=== PATIENT | male | born 1945 | race Caucasian/White ===

== ENCOUNTER → 2017-10-04 | Outpatient (CLI) | payer MEDICARE, MEDICAID ==
[~2017-10-04] MED LIST: HYDRALAZINE 20MG/ML VIAL ONE
== END | disposition home or self-care (01) ==
LOC: NM 07:46
PROVIDERS: ATTEND Internal Medicine Cardiovascular Disease
DX: Z01.818 Encounter for other preprocedural examination (principal); I20.9 Angina pectoris, unspecified; R07.9 Chest pain, unspecified; Z95.1 Presence of aortocoronary bypass graft
CPT/HCPCS: 78451; A9500; J0360

== ENCOUNTER → 2018-08-13 | Outpatient (CLI) | payer MEDICARE, MEDICAID ==
[~2018-08-13] MED LIST changes: +ASPI-1159 PO; +ATOR40TA70 PO; +DIATR MEGLU/DIATRIZOATE SOLN 120ML ONE; -HYDRALAZINE 20MG/ML VIAL ONE; +LOSA50TA20 PO; +METO-539 PO
== END | disposition home or self-care (01) ==
LOC: RAD 08:42
PROVIDERS: ATTEND Surgery
DX: K57.92 Diverticulitis of intestine, part unspecified, without perforation or abscess without bleeding (principal)
CPT/HCPCS: 74270; Q9963

== ENCOUNTER 2018-09-10 05:31 | Inpatient (IN) | payer MEDICARE, MEDICAID ==
[~2018-09-10] VITALS: Ht 177.8 cm; Wt 81.6 kg
[~2018-09-10 05:31] MED LIST changes: -DIATR MEGLU/DIATRIZOATE SOLN 120ML ONE
[2018-09-10] MEDS ORDERED: LACTATED RINGERS 1,000 ML IV SCH (06:40)
[2018-09-10] MEDS ORDERED: BUPIVACAINE HCL 0.5% 290 ML in ON-Q PM015 DRUG DELIV DEVICE 1 EA IR STA (08:31)
[2018-09-10] MEDS ORDERED: BUPIVACAINE HCL/PF 0.5% (5MG/ML) 10ML ONE (08:36)
[2018-09-10] MEDS: FENTANYL CITRATE/PF 50MCG/ML 2ML VIAL IV PRN ×4 (09:49→10:19)
[2018-09-10] MEDS ORDERED: FENTANYL CITRATE/PF 50MCG/ML 2ML VIAL ONE (09:54)
[2018-09-10] MEDS ORDERED: ONDANSETRON HCL 4MG/2ML INJ IV PRN (10:00)
[2018-09-10] MEDS: MORPHINE SULFATE 4 MG/ML CPJ (NOT FOR IM USE) IV PRN ×2 (10:26→10:40)
[2018-09-10 12:00] VITALS: BP 154/85
[2018-09-10 12:30] VITALS: BP 154/85
[2018-09-10] MEDS: DEXT 5%/0.45% NACL KCL 20MEQ/L 1,000 ML IV SCH (15:50)
[2018-09-10 16:00] VITALS: BP 146/88
[2018-09-10] MEDS: CEFAZOLIN 1000MG PREMIX 50 ML IV SCH (17:18)
[2018-09-10] MEDS: METRONIDAZOLE 500 MG PREMIX 100 ML IV SCH (18:13)
[2018-09-10 20:00] VITALS: BP 124/62
[2018-09-10] MEDS: FAMOTIDINE 20MG/2ML VIAL IV SCH (21:35)
[2018-09-11] VITALS: BP 157/87
[2018-09-11] MEDS: CEFAZOLIN 1000MG PREMIX 50 ML IV SCH ×2 (01:44→07:18)
[2018-09-11] MEDS: METRONIDAZOLE 500 MG PREMIX 100 ML IV SCH ×2 (01:44→08:13)
[2018-09-11] MEDS: DEXT 5%/0.45% NACL KCL 20MEQ/L 1,000 ML IV SCH ×3 (01:44→20:43)
[2018-09-11 04:00] VITALS: BP 145/76
[2018-09-11 07:34] LABS: BASOPHILS % 0.2 % (0.0-2.0); EOSINOPHILS % 0.2 % (0.0-5.0); HEMATOCRIT. 37.4 % (42.0-52.0); MEAN CORPUSCULAR HEMOGLOBIN 32.5 pg (28.0-32.0); MEAN CORPUSCULAR VOLUME 93.6 fL (80.0-94.0); MEAN PLATELET VOLUME 6.8 fl (7.4-10.4); MONOCYTES % 8.5 % (2.0-8.0); NEUTROPHILS % 81.1 % (40.0-76.0); PLATELET 148 x1000/uL (130-400); RED BLOOD CELL COUNT 3.99 mill/uL (4.7-6.1)
[2018-09-11] MEDS: FAMOTIDINE 20MG/2ML VIAL IV SCH ×2 (08:14→20:35)
[2018-09-11 08:31] LABS: CHLORIDE 105 mEq/L (98-107)
[2018-09-11] MEDS: HYDROMORPHONE HCL/PF 2MG/ML CPJ IV PRN ×3 (09:22→20:37)
[2018-09-11] MEDS: METOPROLOL TARTRATE 25MG TABLET PO SCH ×2 (10:49→21:00)
[2018-09-11 12:20] VITALS: BP 121/76
[2018-09-11 16:00] VITALS: BP 153/77
[2018-09-11 17:00] VITALS: BP 133/81
[2018-09-11 20:00] VITALS: BP 114/59
[2018-09-12] VITALS: BP 135/69
[2018-09-12 04:00] VITALS: BP 124/70
[2018-09-12] MEDS: HYDROMORPHONE HCL/PF 2MG/ML CPJ IV PRN ×2 (05:43→11:36)
[2018-09-12 06:59] LABS: BASOPHILS % 0.5 % (0.0-2.0); EOSINOPHILS % 1.8 % (0.0-5.0); HEMATOCRIT. 36.4 % (42.0-52.0); HEMOGLOBIN. 12.5 g/dL (14.0-18.0); LYMPHOCYTES % 9.9 % (20.0-50.0); MEAN CORPUSCULAR HEMOGLOBIN 32.4 pg (28.0-32.0); MEAN CORPUSCULAR VOLUME 94.6 fL (80.0-94.0); MEAN PLATELET VOLUME 6.7 fl (7.4-10.4); NEUTROPHILS % 79.8 % (40.0-76.0); PLATELET 133 x1000/uL (130-400); RED BLOOD CELL COUNT 3.85 mill/uL (4.7-6.1); RED CELL DISTRIBUTION WIDTH 16.4 % (11.6-14.6)
[2018-09-12 07:03] LABS: CHLORIDE 106 mEq/L (98-107)
[2018-09-12 08:00] VITALS: BP 130/79
[2018-09-12] MEDS: DEXT 5%/0.45% NACL KCL 20MEQ/L 1,000 ML IV SCH ×3 (08:10→18:41)
[2018-09-12] MEDS: FAMOTIDINE 20MG/2ML VIAL IV SCH ×2 (09:19→21:39)
[2018-09-12] MEDS: METOPROLOL TARTRATE 25MG TABLET PO SCH ×2 (09:19→21:42)
[2018-09-12 12:00] VITALS: BP 153/79
[2018-09-12 16:00] VITALS: BP 130/79
[2018-09-12 20:00] VITALS: BP 146/79
[2018-09-13] VITALS: BP 124/62
[2018-09-13 04:00] VITALS: BP 176/71
[2018-09-13] MEDS: HYDROMORPHONE HCL/PF 2MG/ML CPJ IV PRN ×4 (04:48→23:28)
[2018-09-13] MEDS: DEXT 5%/0.45% NACL KCL 20MEQ/L 1,000 ML IV SCH ×2 (06:19→14:21)
[2018-09-13 07:33] LABS: BASOPHILS % 0.5 % (0.0-2.0); EOSINOPHILS % 4.1 % (0.0-5.0); HEMOGLOBIN. 12.5 g/dL (14.0-18.0); LYMPHOCYTES % 14.8 % (20.0-50.0); MEAN CORPUSCULAR HEMOGLOBIN 31.9 pg (28.0-32.0); MEAN CORPUSCULAR VOLUME 94.6 fL (80.0-94.0); MEAN PLATELET VOLUME 6.8 fl (7.4-10.4); MONOCYTES % 7.9 % (2.0-8.0); NEUTROPHILS % 72.7 % (40.0-76.0); PLATELET 142 x1000/uL (130-400); RED BLOOD CELL COUNT 3.91 mill/uL (4.7-6.1); RED CELL DISTRIBUTION WIDTH 15.8 % (11.6-14.6)
[2018-09-13 08:00] VITALS: BP 149/79
[2018-09-13 08:12] LABS: CHLORIDE 103 mEq/L (98-107)
[2018-09-13] MEDS: METOPROLOL TARTRATE 25MG TABLET PO SCH (09:32)
[2018-09-13] MEDS: FAMOTIDINE 20MG/2ML VIAL IV SCH ×2 (09:32→22:21)
[2018-09-13 12:00] VITALS: BP 156/83
[2018-09-13 16:00] VITALS: BP 125/79
[2018-09-13] MEDS: METOPROLOL TARTRATE 50MG TABLET PO SCH (16:00)
[2018-09-13 20:00] VITALS: BP 155/76
[2018-09-14] VITALS: BP 178/82
[2018-09-14 04:00] VITALS: BP 171/86
[2018-09-14] MEDS: DEXT 5%/0.45% NACL KCL 20MEQ/L 1,000 ML IV SCH ×3 (04:29→23:23)
[2018-09-14] MEDS: METOPROLOL TARTRATE 50MG TABLET PO SCH ×2 (04:31→16:41)
[2018-09-14] MEDS: HYDROMORPHONE HCL/PF 2MG/ML CPJ IV PRN ×3 (06:15→21:03)
[2018-09-14 08:00] VITALS: BP 153/78
[2018-09-14] MEDS: FAMOTIDINE 20MG/2ML VIAL IV SCH ×2 (08:54→21:01)
[2018-09-14 12:00] VITALS: BP 178/90
[2018-09-14] MEDS: AMLODIPINE 5MG TABLET PO SCH ×2 (14:49→21:01)
[2018-09-14 16:00] VITALS: BP 176/99
[2018-09-14 20:00] VITALS: BP 161/95
[2018-09-14] MEDS: ONDANSETRON HCL 4MG/2ML INJ IV PRN (21:03)
[2018-09-15] VITALS: BP 167/97
[2018-09-15] MEDS: METOPROLOL TARTRATE 50MG TABLET PO SCH ×2 (05:09→17:44)
[2018-09-15] MEDS: DEXT 5%/0.45% NACL KCL 20MEQ/L 1,000 ML IV SCH ×2 (06:00→16:00)
[2018-09-15 07:13] LABS: HEMATOCRIT 38.2 % (42.0-52.0); HEMOGLOBIN 13.2 g/dL (14.0-18.0); MEAN CORPUSCULAR HEMOGLOBIN 32.3 pg (28.0-32.0); MEAN CORPUSCULAR VOLUME 93.1 fL (80.0-94.0); PLATELET 180 x1000/uL (130-400); RED CELL DISTRIBUTION WIDTH 15.3 % (11.6-14.6)
[2018-09-15 08:00] VITALS: BP 174/74
[2018-09-15] MEDS: AMLODIPINE 5MG TABLET PO SCH ×2 (08:50→21:00)
[2018-09-15] MEDS: FAMOTIDINE 20MG/2ML VIAL IV SCH ×2 (08:50→22:57)
[2018-09-15] MEDS: HYDROMORPHONE HCL/PF 2MG/ML CPJ IV PRN (09:37)
[2018-09-15 09:43] LABS: CHLORIDE 99 mEq/L (98-107)
[2018-09-15 12:00] VITALS: BP 169/94
[2018-09-15] MEDS: LOSARTAN POTASSIUM 50 MG TABLET PO SCH (14:10)
[2018-09-15] MEDS: DOXAZOSIN MESYLATE 2MG TABLET PO SCH ×2 (14:10→17:44)
[2018-09-15 16:00] VITALS: BP 126/70
[2018-09-15] MEDS ORDERED: MORPHINE SULFATE 4 MG/ML CPJ (NOT FOR IM USE) IV PRN (17:00)
[2018-09-15 20:00] VITALS: BP 92/51
[2018-09-15] MEDS: ONDANSETRON HCL 4MG/2ML INJ IV PRN (22:57)
[2018-09-15] MEDS: HYDROCODONE/ACETAMINOPHEN 5/325MG TABLET PO PRN (23:04)
[2018-09-15] MEDS ORDERED: LORAZEPAM 1MG TABLET PO PRN (23:45)
[2018-09-16] VITALS: BP 109/62
[2018-09-16 04:00] VITALS: BP 143/75
[2018-09-16] MEDS: METOPROLOL TARTRATE 50MG TABLET PO SCH ×2 (04:00→16:24)
[2018-09-16 06:40] LABS: HEMATOCRIT 34.2 % (42.0-52.0); MEAN CORPUSCULAR HEMOGLOBIN 32.7 pg (28.0-32.0); PLATELET 163 x1000/uL (130-400); RED BLOOD CELL COUNT 3.68 mill/uL (4.7-6.1)
[2018-09-16] MEDS: FAMOTIDINE 20MG/2ML VIAL IV SCH ×2 (08:32→23:28)
[2018-09-16] MEDS: DOXAZOSIN MESYLATE 2MG TABLET PO SCH ×2 (08:32→16:25)
[2018-09-16] MEDS: LOSARTAN POTASSIUM 50 MG TABLET PO SCH (08:33)
[2018-09-16] MEDS: AMLODIPINE 5MG TABLET PO SCH ×2 (08:34→21:00)
[2018-09-16 09:51] LABS: CHLORIDE 102 mEq/L (98-107)
[2018-09-16] MEDS: QUETIAPINE FUMARATE 25MG TABLET PO SCH (11:37)
[2018-09-16] MEDS: DEXT 5%/0.45% NACL KCL 20MEQ/L 1,000 ML IV SCH (11:45)
[2018-09-16] MEDS ORDERED: LORAZEPAM 1MG TABLET PO PRN (15:00)
[2018-09-16 20:00] VITALS: BP 91/52
[2018-09-16] MEDS ORDERED: LORAZEPAM 0.5MG TABLET PO PRN (21:00)
[2018-09-17] VITALS: BP 120/67
[2018-09-17] MEDS: DEXT 5%/0.45% NACL KCL 20MEQ/L 1,000 ML IV SCH ×2 (03:33→20:26)
[2018-09-17 04:00] VITALS: BP 121/65
[2018-09-17] MEDS: METOPROLOL TARTRATE 50MG TABLET PO SCH ×2 (04:00→18:47)
[2018-09-17] MEDS: HYDROCODONE/ACETAMINOPHEN 5/325MG TABLET PO PRN ×2 (04:22→20:24)
[2018-09-17 07:45] LABS: BASOPHILS % 0.7 % (0.0-2.0); EOSINOPHILS % 6.2 % (0.0-5.0); HEMOGLOBIN. 11.8 g/dL (14.0-18.0); LYMPHOCYTES % 21.5 % (20.0-50.0); MEAN CORPUSCULAR HEMOGLOBIN 32.7 pg (28.0-32.0); MEAN CORPUSCULAR VOLUME 93.8 fL (80.0-94.0); MEAN PLATELET VOLUME 6.8 fl (7.4-10.4); MONOCYTES % 10.7 % (2.0-8.0); NEUTROPHILS % 60.9 % (40.0-76.0); PLATELET 181 x1000/uL (130-400); RED BLOOD CELL COUNT 3.62 mill/uL (4.7-6.1); RED CELL DISTRIBUTION WIDTH 15.2 % (11.6-14.6)
[2018-09-17 08:25] LABS: CHLORIDE 105 mEq/L (98-107)
[2018-09-17] MEDS: DOXAZOSIN MESYLATE 2MG TABLET PO SCH ×2 (08:37→18:48)
[2018-09-17] MEDS: FAMOTIDINE 20MG/2ML VIAL IV SCH ×2 (08:58→20:24)
[2018-09-17] MEDS: QUETIAPINE FUMARATE 25MG TABLET PO SCH (08:58)
[2018-09-17] MEDS: AMLODIPINE 5MG TABLET PO SCH ×2 (08:58→20:25)
[2018-09-17 20:00] VITALS: BP 131/79
[2018-09-18] VITALS: BP 130/69
[2018-09-18 04:00] VITALS: BP 105/59
[2018-09-18] MEDS: METOPROLOL TARTRATE 50MG TABLET PO SCH (04:00)
[2018-09-18 06:32] LABS: HEMATOCRIT 35.1 % (42.0-52.0); MEAN CORPUSCULAR HEMOGLOBIN 32.3 pg (28.0-32.0); MEAN CORPUSCULAR VOLUME 94.4 fL (80.0-94.0); PLATELET 185 x1000/uL (130-400); RED BLOOD CELL COUNT 3.71 mill/uL (4.7-6.1); RED CELL DISTRIBUTION WIDTH 15.5 % (11.6-14.6)
[2018-09-18 07:07] LABS: CHLORIDE 106 mEq/L (98-107)
[2018-09-18 08:00] VITALS: BP 142/80
[2018-09-18] MEDS: QUETIAPINE FUMARATE 25MG TABLET PO SCH (08:44)
[2018-09-18] MEDS: FAMOTIDINE 20MG/2ML VIAL IV SCH (08:45)
[2018-09-18] MEDS: AMLODIPINE 5MG TABLET PO SCH (08:45)
[2018-09-18] MEDS: DOXAZOSIN MESYLATE 2MG TABLET PO SCH (08:45)
[2018-09-18 12:00] VITALS: BP 130/77
[2018-09-18 16:00] VITALS: BP 134/70
[2018-09-18 16:26] VITALS: BP 134/70
== END 2018-09-18 17:06 | disposition home health service (06) | DRG 231 ==
LOC: ORIP 05:31 → 6EST 12:15
PROVIDERS: ADMIT Surgery; ATTEND Internal Medicine
PROC: 0DBN0ZZ Excision of Sigmoid Colon, Open Approach (ICD-10-PCS; 2018-09-10)
PROC: 0DSN0ZZ Reposition Sigmoid Colon, Open Approach (ICD-10-PCS; principal; 2018-09-10 07:30)
DX: Z43.3 Encounter for attention to colostomy (principal); G93.41 Metabolic encephalopathy; E44.0 Moderate protein-calorie malnutrition; I95.9 Hypotension, unspecified; D64.9 Anemia, unspecified; F03.90 Unspecified dementia, unspecified severity, without behavioral disturbance, psychotic disturbance, mood disturbance, and anxiety; I11.9 Hypertensive heart disease without heart failure; J44.9 Chronic obstructive pulmonary disease, unspecified; R41.0 Disorientation, unspecified; E66.9 Obesity, unspecified; I25.118 Atherosclerotic heart disease of native coronary artery with other forms of angina pectoris; Z95.1 Presence of aortocoronary bypass graft; Z68.25 Body mass index [BMI] 25.0-25.9, adult
CPT/HCPCS: 36415; 71045; 80048; 82040; 83036; 85027; 88304; 97116; 97163; 97530; C1893; J0690; J1170; J1956; J2250; J2270; J2370; J2405; J2704; J2710; J3010; J3490; J7120

== ENCOUNTER 2020-07-14 16:31 | Inpatient (IN) | payer MEDICARE, MEDICAID ==
[~2020-07-14] VITALS: Ht 172.7 cm; Wt 89.8 kg
[~2020-07-14 16:31] MED LIST changes: -ASPI-1159 PO; +ASPI-1497 PO; -LOSA50TA20 PO; +LOSA50TA41 PO
[2020-07-14 18:04] LABS: BASOPHILS % 0.7 % (0.0-2.0); EOSINOPHILS % 0.6 % (0.0-5.0); HEMATOCRIT. 36.9 % (42.0-52.0); HEMOGLOBIN. 12.2 g/dL (14.0-18.0); MEAN CORPUSCULAR HEMOGLOBIN 28.5 pg (28.0-32.0); MEAN PLATELET VOLUME 6.6 fl (7.4-10.4); MONOCYTES % 5.7 % (2.0-8.0); PLATELET 155 x1000/uL (130-400); RED BLOOD CELL COUNT 4.29 mill/uL (4.7-6.1); RED CELL DISTRIBUTION WIDTH 16.6 % (11.6-14.6)
[2020-07-14 18:10] LABS: CHLORIDE 105 mEq/L (98-107)
[2020-07-14] MEDS ORDERED: SODIUM CHLORIDE 0.9% 1,000 ML IV ONE (18:20)
[2020-07-14 21:54] LABS: CLARITY URINE CLEAR (CLEAR); COLOR URINE YELLOW (YELLOW); KETONES URINE NEGATIVE (NEGATIVE); LEUKOCYTE ESTERASE URINE NEGATIVE (NEGATIVE); NITRITE URINE NEGATIVE (NEGATIVE); OCCULT BLOOD URINE NEGATIVE (NEGATIVE); PROTEIN URINE 1+ (NEGATIVE)
[2020-07-15] VITALS (8 sets, daily range): BP systolic 138–175; BP diastolic 60–95
[2020-07-15] MEDS ORDERED: ACETAMINOPHEN 325MG TABLET PO PRN ×2 (00:45)
[2020-07-15] MEDS ORDERED: DIPHENHYDRAMINE 50MG/ML VIAL IV PRN (00:45)
[2020-07-15] MEDS ORDERED: ZOLPIDEM TARTRATE 5MG TABLET PO PRN (00:45)
[2020-07-15] MEDS ORDERED: ENOXAPARIN 40MG/0.4ML SYR SUBCUT SCH (00:45)
[2020-07-15] MEDS ORDERED: ONDANSETRON HCL 4MG/2ML INJ IV PRN (00:45)
[2020-07-15] MEDS: HYDRALAZINE 20MG/ML VIAL IV PRN (01:39)
[2020-07-15] MEDS: DEXT 5%/0.45% NACL 1000ML 1,000 ML IV SCH ×3 (01:39→20:45)
[2020-07-15 06:35] LABS: BASOPHILS % 0.4 % (0.0-2.0); HEMOGLOBIN. 11.5 g/dL (14.0-18.0); LYMPHOCYTES % 16.2 % (20.0-50.0); MEAN CORPUSCULAR HEMOGLOBIN 27.9 pg (28.0-32.0); MEAN PLATELET VOLUME 7.1 fl (7.4-10.4); MONOCYTES % 7.2 % (2.0-8.0); NEUTROPHILS % 75.2 % (40.0-76.0); PLATELET 148 x1000/uL (130-400); RED BLOOD CELL COUNT 4.12 mill/uL (4.7-6.1)
[2020-07-15 06:52] LABS: CHLORIDE 109 mEq/L (98-107)
[2020-07-15] MEDS: AMLODIPINE 5MG TABLET PO SCH (08:18)
[2020-07-15] MEDS: ENOXAPARIN 30MG/0.3ML SYR SUBCUT SCH ×2 (08:19→21:18)
[2020-07-15] MEDS ORDERED: PNEUMOCOCCAL 23-VAL P-SAC VAC 0.5 ML IM ONE (12:00)
[2020-07-15] MEDS: CLOPIDOGREL 75MG TABLET PO SCH (15:47)
[2020-07-15] MEDS: ASPIRIN 81MG EC TABLET PO SCH (15:47)
[2020-07-15 17:45] LABS: *BARBITURATES SCREEN URINE NEGATIVE (NEGATIVE)
[2020-07-15 17:46] LABS: *AMPHETAMINES SCREEN URINE NEGATIVE (NEGATIVE); *BENZODIAZEPINES SCREEN URINE NEGATIVE (NEGATIVE); *COCAINE SCREEN URINE NEGATIVE (NEGATIVE); CANNABINOID URINE SCREEN NEGATIVE (NEGATIVE); METHADONE URINE SCREEN NEGATIVE (NEGATIVE); OPIATES URINE SCREEN NEGATIVE (NEGATIVE); PHENCYCLIDINE URINE SCREEN NEGATIVE (NEGATIVE)
[2020-07-15] MEDS: METOPROLOL TARTRATE 25MG TABLET PO SCH (21:17)
[2020-07-15] MEDS: ATORVASTATIN CALCIUM 20MG TABLET PO SCH (21:17)
[2020-07-16] VITALS: BP 160/77
[2020-07-16 04:00] VITALS: BP 108/72
[2020-07-16 05:32] VITALS: BP 108/72
[2020-07-16] MEDS: DEXT 5%/0.45% NACL 1000ML 1,000 ML IV SCH ×2 (06:43→17:50)
[2020-07-16 08:00] VITALS: BP 151/77
[2020-07-16 10:07] LABS: VITAMIN B12 SERUM 520 pg/mL (211-911)
[2020-07-16] MEDS: AMLODIPINE 5MG TABLET PO SCH (10:07)
[2020-07-16] MEDS: METOPROLOL TARTRATE 25MG TABLET PO SCH ×2 (10:07→20:49)
[2020-07-16] MEDS: ASPIRIN 81MG EC TABLET PO SCH (10:07)
[2020-07-16] MEDS: CLOPIDOGREL 75MG TABLET PO SCH (10:07)
[2020-07-16] MEDS: ENOXAPARIN 30MG/0.3ML SYR SUBCUT SCH ×2 (10:08→20:48)
[2020-07-16] MEDS ORDERED: POTASSIUM CHLORIDE 20MEQ TABLET SR PO NR (11:45)
[2020-07-16 16:00] VITALS: BP 142/70
[2020-07-16] MEDS ORDERED: IOHEXOL-350 100 ML BOTTLE ONE (19:45)
[2020-07-16 20:00] VITALS: BP 129/77
[2020-07-16] MEDS: ATORVASTATIN CALCIUM 20MG TABLET PO SCH (20:49)
[2020-07-17] VITALS: BP 151/77
[2020-07-17] MEDS: DEXT 5%/0.45% NACL 1000ML 1,000 ML IV SCH ×2 (02:13→12:55)
[2020-07-17 04:00] VITALS: BP 141/86
[2020-07-17 08:00] VITALS: BP 161/88
[2020-07-17] MEDS: ASPIRIN 81MG EC TABLET PO SCH (09:57)
[2020-07-17] MEDS: AMLODIPINE 5MG TABLET PO SCH (09:57)
[2020-07-17] MEDS: CLOPIDOGREL 75MG TABLET PO SCH (09:57)
[2020-07-17] MEDS: METOPROLOL TARTRATE 25MG TABLET PO SCH ×2 (09:58→21:38)
[2020-07-17] MEDS: ENOXAPARIN 30MG/0.3ML SYR SUBCUT SCH ×2 (09:59→21:38)
[2020-07-17] MEDS ORDERED: IOHEXOL-350 100 ML BOTTLE ONE (14:49)
[2020-07-17 16:00] VITALS: BP 147/75
[2020-07-17 20:00] VITALS: BP 152/89
[2020-07-17] MEDS: ATORVASTATIN CALCIUM 20MG TABLET PO SCH (21:37)
[2020-07-18] VITALS: BP 169/90
[2020-07-18] MEDS: HYDRALAZINE 20MG/ML VIAL IV PRN (01:31)
[2020-07-18 04:00] VITALS: BP 145/74
[2020-07-18] MEDS: DEXT 5%/0.45% NACL 1000ML 1,000 ML IV SCH ×4 (04:16→20:55)
[2020-07-18 04:31] LABS: CLARITY URINE CLEAR (CLEAR); COLOR URINE YELLOW (YELLOW); KETONES URINE NEGATIVE (NEGATIVE); LEUKOCYTE ESTERASE URINE NEGATIVE (NEGATIVE); NITRITE URINE NEGATIVE (NEGATIVE); OCCULT BLOOD URINE NEGATIVE (NEGATIVE); PH URINE 5.5 (4.5-8.0); PROTEIN URINE NEGATIVE (NEGATIVE); SPECIFIC GRAVITY URINE 1.024 (1.005-1.030); UROBILINOGEN URINE 0.2 E.U./dL (0.2-1.0)
[2020-07-18 08:00] VITALS: BP 103/61
[2020-07-18] MEDS: METOPROLOL TARTRATE 25MG TABLET PO SCH ×2 (09:00→21:34)
[2020-07-18] MEDS: AMLODIPINE 5MG TABLET PO SCH (09:00)
[2020-07-18] MEDS: CLOPIDOGREL 75MG TABLET PO SCH (09:49)
[2020-07-18] MEDS: ASPIRIN 81MG EC TABLET PO SCH (09:49)
[2020-07-18 12:00] VITALS: BP 150/90
[2020-07-18 16:00] VITALS: BP 119/45
[2020-07-18 20:00] VITALS: BP_SYST 150; BP_SYST 155; BP_DIAS 76; BP_DIAS 86
[2020-07-18] MEDS: ATORVASTATIN CALCIUM 20MG TABLET PO SCH (21:34)
[2020-07-19] VITALS: BP 140/77
[2020-07-19 04:00] VITALS: BP 114/75
[2020-07-19 08:00] VITALS: BP 141/71
[2020-07-19] MEDS: AMLODIPINE 5MG TABLET PO SCH (08:55)
[2020-07-19] MEDS: CLOPIDOGREL 75MG TABLET PO SCH (08:55)
[2020-07-19] MEDS: ASPIRIN 81MG EC TABLET PO SCH (08:55)
[2020-07-19] MEDS: METOPROLOL TARTRATE 25MG TABLET PO SCH ×2 (08:56→22:14)
[2020-07-19 12:00] VITALS: BP 141/62
[2020-07-19] MEDS: DEXT 5%/0.45% NACL 1000ML 1,000 ML IV SCH (15:06)
[2020-07-19 16:00] VITALS: BP 131/86
[2020-07-19 20:00] VITALS: BP 137/89
[2020-07-19] MEDS: ATORVASTATIN CALCIUM 20MG TABLET PO SCH (22:14)
[2020-07-20] VITALS (7 sets, daily range): BP systolic 126–172; BP diastolic 72–86
[2020-07-20] MEDS: DEXT 5%/0.45% NACL 1000ML 1,000 ML IV SCH ×2 (04:59→10:45)
[2020-07-20] MEDS: METOPROLOL TARTRATE 25MG TABLET PO SCH (09:34)
[2020-07-20] MEDS: CLOPIDOGREL 75MG TABLET PO SCH (09:34)
[2020-07-20] MEDS: ASPIRIN 81MG EC TABLET PO SCH (09:34)
[2020-07-20] MEDS: AMLODIPINE 5MG TABLET PO SCH (09:34)
[2020-07-20] MEDS: HYDRALAZINE 20MG/ML VIAL IV PRN (16:37)
== END 2020-07-20 18:40 | disposition home or self-care (01) | DRG 45 ==
LOC: ER 16:45 → EDBEDREQTM 19:58 → EDBEDREQ 19:58 → MICUSO 21:00 → 8WST 07-15 00:07
PROVIDERS: ADMIT Internal Medicine; ATTEND Internal Medicine
DX: I63.9 Cerebral infarction, unspecified (principal); G90.8 Other disorders of autonomic nervous system; R55 Syncope and collapse; G93.89 Other specified disorders of brain; I11.9 Hypertensive heart disease without heart failure; F03.90 Unspecified dementia, unspecified severity, without behavioral disturbance, psychotic disturbance, mood disturbance, and anxiety; I25.10 Atherosclerotic heart disease of native coronary artery without angina pectoris; I44.0 Atrioventricular block, first degree; I25.118 Atherosclerotic heart disease of native coronary artery with other forms of angina pectoris; R33.8 Other retention of urine; I73.9 Peripheral vascular disease, unspecified; I65.22 Occlusion and stenosis of left carotid artery; I27.20 Pulmonary hypertension, unspecified; J32.0 Chronic maxillary sinusitis; I08.1 Rheumatic disorders of both mitral and tricuspid valves; Z79.02 Long term (current) use of antithrombotics/antiplatelets; Z79.82 Long term (current) use of aspirin; Z79.899 Other long term (current) drug therapy; Z86.73 Personal history of transient ischemic attack (TIA), and cerebral infarction without residual deficits; Z95.1 Presence of aortocoronary bypass graft; Z43.3 Encounter for attention to colostomy; N17.9 Acute kidney failure, unspecified
CPT/HCPCS: 36415; 70498; 70551; 71045; 80048; 80053; 80061; 80305; 81003; 82607; 83036; 84443; 84484; 85025; 90732; 93005; 93306; 93880; 93970; 97110; 97116; 97162; 97166; 97530; 97535; 99285; J0360; J1200; J1650; Q9967

== ENCOUNTER 2020-07-31 10:40 | Inpatient (IN) | payer MEDICARE, MEDICAID ==
[~2020-07-31] VITALS: Ht 175.3 cm; Wt 88.9 kg
[2020-07-31] MEDS ORDERED: SODIUM CHLORIDE 0.9% 1,000 ML IV ONE ×2 (10:47→11:45)
[2020-07-31 11:17] LABS: BASOPHILS % 0.7 % (0.0-2.0); EOSINOPHILS % 2.2 % (0.0-5.0); HEMATOCRIT. 35.7 % (42.0-52.0); HEMOGLOBIN. 11.8 g/dL (14.0-18.0); LYMPHOCYTES % 15.8 % (20.0-50.0); MEAN CORPUSCULAR HEMOGLOBIN 28.4 pg (28.0-32.0); MEAN CORPUSCULAR VOLUME 86.1 fL (80.0-94.0); MEAN PLATELET VOLUME 6.5 fl (7.4-10.4); MONOCYTES % 6.4 % (2.0-8.0); NEUTROPHILS % 74.9 % (40.0-76.0); PLATELET 239 x1000/uL (130-400); RED BLOOD CELL COUNT 4.15 mill/uL (4.7-6.1); RED CELL DISTRIBUTION WIDTH 17.9 % (11.6-14.6)
[2020-07-31 11:44] LABS: CHLORIDE 110 mEq/L (98-107)
[2020-07-31] MEDS ORDERED: PIPERACILLIN/TAZOBACTAM 3.375GM/50ML PREMIX IV ONE (11:45)
[2020-07-31 11:47] LABS: PROTHROMBIN TIME 10.9 sec (9.6-11.0)
[2020-07-31 11:55] LABS: C REACTIVE PROTEIN QUANT 5.6 mg/L (0.0-3.0)
[2020-07-31] MEDS ORDERED: PIPERACILLIN/TAZ 3.375G PREMIX 50 ML IV SCH ×3 (12:00→20:00)
[2020-07-31 13:16] LABS: ETHANOL BLOOD < 10 mg/dL
[2020-07-31 15:05] VITALS: BP 153/76
[2020-07-31] MEDS ORDERED: ACETAMINOPHEN 325MG TABLET PO PRN (15:15)
[2020-07-31] MEDS ORDERED: ONDANSETRON HCL 4MG/2ML INJ IV PRN (15:15)
[2020-07-31] MEDS ORDERED: IPRATROPIUM/ALBUTEROL 0.5-3(2.5)MG/3ML NEB HHN PRN (15:15)
[2020-07-31] MEDS ORDERED: DIPHENHYDRAMINE 50MG/ML VIAL IV PRN (15:15)
[2020-07-31 16:00] VITALS: BP 153/76
[2020-07-31] MEDS ORDERED: DEXTROSE 50% WATER 50ML SYRINGE IV PRN (16:15)
[2020-07-31] MEDS: BLOOD SUGAR DIAGNOSTIC STRIP TEST SCH ×2 (16:49→20:41)
[2020-07-31] MEDS: INSULIN LISPRO 100 UNITS/ML SUBCUT SCH ×2 (16:54→20:41)
[2020-07-31] MEDS: ENOXAPARIN 30MG/0.3ML SYR SUBCUT SCH (17:27)
[2020-07-31] MEDS ORDERED: PIPERACILLIN/TAZOBACTAM 3.375 G in DEXT 5% WATER 100 ML IV SCH (18:30)
[2020-07-31 20:36] VITALS: BP 136/79
[2020-08-01] VITALS: BP 170/85
[2020-08-01 04:00] VITALS: BP 129/73
[2020-08-01] MEDS: ENOXAPARIN 30MG/0.3ML SYR SUBCUT SCH ×2 (05:25→21:40)
[2020-08-01] MEDS: BLOOD SUGAR DIAGNOSTIC STRIP TEST SCH ×4 (05:26→21:39)
[2020-08-01] MEDS: INSULIN LISPRO 100 UNITS/ML SUBCUT SCH ×4 (06:08→21:00)
[2020-08-01 07:35] LABS: BASOPHILS % 0.5 % (0.0-2.0); EOSINOPHILS % 1.1 % (0.0-5.0); HEMATOCRIT. 30.7 % (42.0-52.0); HEMOGLOBIN. 10.2 g/dL (14.0-18.0); LYMPHOCYTES % 11.7 % (20.0-50.0); MEAN CORPUSCULAR HEMOGLOBIN 28.4 pg (28.0-32.0); MEAN CORPUSCULAR VOLUME 85.2 fL (80.0-94.0); MEAN PLATELET VOLUME 6.5 fl (7.4-10.4); MONOCYTES % 6.4 % (2.0-8.0); NEUTROPHILS % 80.3 % (40.0-76.0); PLATELET 176 x1000/uL (130-400); RED BLOOD CELL COUNT 3.61 mill/uL (4.7-6.1)
[2020-08-01 08:00] VITALS: BP 141/81
[2020-08-01 08:22] LABS: CHLORIDE 108 mEq/L (98-107)
[2020-08-01 08:33] LABS: LDL CHOLESTEROL 69 mg/dL (5-100)
[2020-08-01 08:35] LABS: HDL CHOLESTEROL 36 mg/dL (40-59)
[2020-08-01 12:00] VITALS: BP 153/81
[2020-08-01] MEDS: ASPIRIN 81MG TABLET PO SCH (12:07)
[2020-08-01] MEDS: CLOPIDOGREL 75MG TABLET PO SCH (12:07)
[2020-08-01 15:35] LABS: CLARITY URINE CLEAR (CLEAR); COLOR URINE YELLOW (YELLOW); KETONES URINE NEGATIVE (NEGATIVE); LEUKOCYTE ESTERASE URINE NEGATIVE (NEGATIVE); NITRITE URINE NEGATIVE (NEGATIVE); OCCULT BLOOD URINE NEGATIVE (NEGATIVE); PH URINE 5.5 (4.5-8.0); PROTEIN URINE TRACE (NEGATIVE); SPECIFIC GRAVITY URINE 1.024 (1.005-1.030); UROBILINOGEN URINE 0.2 E.U./dL (0.2-1.0)
[2020-08-01 16:00] VITALS: BP 141/84
[2020-08-01 16:35] LABS: *AMPHETAMINES SCREEN URINE NEGATIVE (NEGATIVE); *BARBITURATES SCREEN URINE NEGATIVE (NEGATIVE); *BENZODIAZEPINES SCREEN URINE NEGATIVE (NEGATIVE); *COCAINE SCREEN URINE NEGATIVE (NEGATIVE); METHADONE URINE SCREEN NEGATIVE (NEGATIVE)
[2020-08-01 16:36] LABS: CANNABINOID URINE SCREEN NEGATIVE (NEGATIVE); OPIATES URINE SCREEN NEGATIVE (NEGATIVE); PHENCYCLIDINE URINE SCREEN NEGATIVE (NEGATIVE)
[2020-08-01 20:00] VITALS: BP 170/84
[2020-08-01] MEDS ORDERED: ATORVASTATIN CALCIUM 20MG TABLET PO SCH (21:00)
[2020-08-01] MEDS: CLONIDINE 0.1MG TABLET PO PRN (21:40)
[2020-08-02] VITALS: BP 133/91
[2020-08-02 04:00] VITALS: BP 171/94
[2020-08-02] MEDS: CLONIDINE 0.1MG TABLET PO PRN (04:48)
[2020-08-02] MEDS: BLOOD SUGAR DIAGNOSTIC STRIP TEST SCH ×3 (06:40→16:36)
[2020-08-02] MEDS: INSULIN LISPRO 100 UNITS/ML SUBCUT SCH ×3 (06:40→16:37)
[2020-08-02 08:00] VITALS: BP 140/89
[2020-08-02] MEDS: CLOPIDOGREL 75MG TABLET PO SCH (08:19)
[2020-08-02] MEDS: ASPIRIN 81MG TABLET PO SCH (08:19)
[2020-08-02] MEDS ORDERED: ENOXAPARIN 40MG/0.4ML SYR SUBCUT SCH (09:00)
[2020-08-02 12:00] VITALS: BP 148/84
[2020-08-02] MEDS ORDERED: CLOP75TA15 PO (14:53)
[2020-08-02 16:00] VITALS: BP 155/85
[2020-08-02 18:49] VITALS: BP 155/75
[2020-08-02] MEDS ORDERED: METOPROLOL TARTRATE 25MG TABLET PO SCH (21:00)
== END 2020-08-02 18:55 | disposition home or self-care (01) | DRG 720 ==
LOC: ER 10:40 → 5WST 13:17 → EDBEDREQ 13:50 → EDBEDREQSVC 13:50 → ENRESERV 14:19
PROVIDERS: ADMIT Internal Medicine; ATTEND Internal Medicine
DX: A41.9 Sepsis, unspecified organism (principal); E11.9 Type 2 diabetes mellitus without complications; E87.2 Acidosis; F03.90 Unspecified dementia, unspecified severity, without behavioral disturbance, psychotic disturbance, mood disturbance, and anxiety; I10 Essential (primary) hypertension; K57.90 Diverticulosis of intestine, part unspecified, without perforation or abscess without bleeding; N28.1 Cyst of kidney, acquired; I25.118 Atherosclerotic heart disease of native coronary artery with other forms of angina pectoris; I65.23 Occlusion and stenosis of bilateral carotid arteries; D64.9 Anemia, unspecified; E78.5 Hyperlipidemia, unspecified; F17.210 Nicotine dependence, cigarettes, uncomplicated; Z85.038 Personal history of other malignant neoplasm of large intestine; Z95.1 Presence of aortocoronary bypass graft; Z86.73 Personal history of transient ischemic attack (TIA), and cerebral infarction without residual deficits; Z93.3 Colostomy status; Z79.4 Long term (current) use of insulin; Z79.899 Other long term (current) drug therapy; E44.0 Moderate protein-calorie malnutrition
CPT/HCPCS: 36415; 70551; 71045; 74176; 76705; 80053; 80061; 80305; 80320; 81003; 82962; 83036; 83605; 83615; 83880; 84145; 84443; 84484; 85025; 86140; 93005; 93880; 93970; 97110; 97116; 97162; 97166; 99285; J1650; J1815; J2543; J7030; J7060; G0480

== ENCOUNTER 2020-10-18 12:39 | Inpatient (IN) | payer MEDICARE, MEDICAID ==
[~2020-10-18] VITALS: Ht 175.3 cm; Wt 87.5 kg
[~2020-10-18 12:39] MED LIST changes: +AMLO5TAB88 PO; +CLOP75TA15 PO
[2020-10-18] MEDS ORDERED: SODIUM CHLORIDE 0.9% 1,000 ML IV ONE ×2 (13:15→14:15)
[2020-10-18 13:34] LABS: BASOPHILS % 0.6 % (0.0-2.0); EOSINOPHILS % 3.5 % (0.0-5.0); HEMOGLOBIN. 11.4 g/dL (14.0-18.0); MEAN CORPUSCULAR HEMOGLOBIN 28.2 pg (28.0-32.0); MEAN CORPUSCULAR VOLUME 86.7 fL (80.0-94.0); MEAN PLATELET VOLUME 6.6 fl (7.4-10.4); MONOCYTES % 7.1 % (2.0-8.0); NEUTROPHILS % 70.8 % (40.0-76.0); PLATELET 162 x1000/uL (130-400); RED BLOOD CELL COUNT 4.04 mill/uL (4.7-6.1); RED CELL DISTRIBUTION WIDTH 17.3 % (11.6-14.6)
[2020-10-18 13:42] LABS: CHLORIDE 108 mEq/L (98-107)
[2020-10-18] MEDS ORDERED: CLONIDINE 0.1MG TABLET PO PRN (17:45)
[2020-10-18] MEDS ORDERED: ONDANSETRON HCL 4MG/2ML INJ IV PRN (17:45)
[2020-10-18] MEDS ORDERED: ACETAMINOPHEN 325MG TABLET PO PRN ×2 (17:45)
[2020-10-18] MEDS ORDERED: HYDROCODONE/ACETAMINOPHEN 5/325MG TABLET PO PRN (17:45)
[2020-10-18] MEDS ORDERED: DOCUSATE SODIUM 100MG CAPSULE PO PRN (17:45)
[2020-10-18] MEDS ORDERED: IPRATROPIUM/ALBUTEROL 0.5-3(2.5)MG/3ML NEB HHN PRN (17:45)
[2020-10-18] MEDS: METOPROLOL TARTRATE 50MG TABLET PO SCH (21:00)
[2020-10-18 21:45] VITALS: BP 171/87
[2020-10-18] MEDS ORDERED: DEXTROSE 50% WATER 50ML SYRINGE IV PRN (22:15)
[2020-10-18] MEDS: LOSARTAN POTASSIUM 50 MG TABLET PO SCH (22:50)
[2020-10-18] MEDS: AMLODIPINE 5MG TABLET PO SCH (22:50)
[2020-10-19] VITALS: BP 138/75
[2020-10-19 04:00] VITALS: BP 124/62
[2020-10-19] MEDS: BLOOD SUGAR DIAGNOSTIC STRIP TEST SCH ×4 (06:03→21:17)
[2020-10-19 06:34] LABS: BASOPHILS % 0.6 % (0.0-2.0); CHLORIDE 110 mEq/L (98-107); EOSINOPHILS % 3.1 % (0.0-5.0); HEMATOCRIT. 31.6 % (42.0-52.0); HEMOGLOBIN. 10.5 g/dL (14.0-18.0); LYMPHOCYTES % 20.3 % (20.0-50.0); MEAN CORPUSCULAR HEMOGLOBIN 28.5 pg (28.0-32.0); MEAN CORPUSCULAR VOLUME 85.6 fL (80.0-94.0); MEAN PLATELET VOLUME 6.6 fl (7.4-10.4); MONOCYTES % 7.6 % (2.0-8.0); NEUTROPHILS % 68.4 % (40.0-76.0); PLATELET 154 x1000/uL (130-400); RED BLOOD CELL COUNT 3.69 mill/uL (4.7-6.1); RED CELL DISTRIBUTION WIDTH 17.4 % (11.6-14.6)
[2020-10-19] MEDS: INSULIN LISPRO 100 UNITS/ML SUBCUT SCH ×4 (07:31→21:17)
[2020-10-19 08:00] VITALS: BP 126/71
[2020-10-19] MEDS ORDERED: ATORVASTATIN CALCIUM 40MG TABLET PO SCH (09:00)
[2020-10-19] MEDS: ASPIRIN 81MG EC TABLET PO SCH (09:01)
[2020-10-19] MEDS: CLOPIDOGREL 75MG TABLET PO SCH (09:02)
[2020-10-19] MEDS: AMLODIPINE 5MG TABLET PO SCH (09:02)
[2020-10-19] MEDS: LOSARTAN POTASSIUM 50 MG TABLET PO SCH (09:02)
[2020-10-19] MEDS: METOPROLOL TARTRATE 50MG TABLET PO SCH ×2 (09:02→21:17)
[2020-10-19 12:00] VITALS: BP 127/66
[2020-10-19 16:00] VITALS: BP 126/70
[2020-10-19 20:15] VITALS: BP 116/95
[2020-10-20 00:28] VITALS: BP 131/67
[2020-10-20 04:00] VITALS: BP 126/70
[2020-10-20 06:15] LABS: BASOPHILS % 0.8 % (0.0-2.0); EOSINOPHILS % 4.1 % (0.0-5.0); HEMATOCRIT. 33.9 % (42.0-52.0); HEMOGLOBIN. 11.3 g/dL (14.0-18.0); LYMPHOCYTES % 22.8 % (20.0-50.0); MEAN CORPUSCULAR HEMOGLOBIN 28.5 pg (28.0-32.0); MEAN CORPUSCULAR VOLUME 85.9 fL (80.0-94.0); MEAN PLATELET VOLUME 6.6 fl (7.4-10.4); MONOCYTES % 8.9 % (2.0-8.0); NEUTROPHILS % 63.4 % (40.0-76.0); PLATELET 166 x1000/uL (130-400); RED BLOOD CELL COUNT 3.95 mill/uL (4.7-6.1); RED CELL DISTRIBUTION WIDTH 17.5 % (11.6-14.6)
[2020-10-20] MEDS: BLOOD SUGAR DIAGNOSTIC STRIP TEST SCH ×2 (06:17→13:14)
[2020-10-20 06:26] LABS: CHLORIDE 109 mEq/L (98-107)
[2020-10-20] MEDS: INSULIN LISPRO 100 UNITS/ML SUBCUT SCH ×2 (07:50→13:16)
[2020-10-20 08:00] VITALS: BP 126/63
[2020-10-20] MEDS: ASPIRIN 81MG EC TABLET PO SCH (08:46)
[2020-10-20] MEDS: CLOPIDOGREL 75MG TABLET PO SCH (08:47)
[2020-10-20] MEDS: LOSARTAN POTASSIUM 50 MG TABLET PO SCH (08:47)
[2020-10-20] MEDS: AMLODIPINE 5MG TABLET PO SCH (08:48)
[2020-10-20] MEDS: METOPROLOL TARTRATE 50MG TABLET PO SCH (08:54)
[2020-10-20] MEDS ORDERED: METO25TA6 PO (11:26)
[2020-10-20 12:00] VITALS: BP 136/95
[2020-10-20 13:49] VITALS: BP 136/95
[2020-10-20] MEDS ORDERED: ATORVASTATIN CALCIUM 40MG TABLET PO SCH (21:00)
[2020-10-20] MEDS ORDERED: METOPROLOL TARTRATE 25MG TABLET PO SCH (21:00)
== END 2020-10-20 15:34 | disposition home or self-care (01) | DRG 46 ==
LOC: ER 12:52 → 6WST 15:11 → ENRESERV 20:53
PROVIDERS: ADMIT Internal Medicine; ATTEND Internal Medicine
DX: I65.29 Occlusion and stenosis of unspecified carotid artery (principal); R55 Syncope and collapse; I10 Essential (primary) hypertension; E78.5 Hyperlipidemia, unspecified; D64.9 Anemia, unspecified; E11.51 Type 2 diabetes mellitus with diabetic peripheral angiopathy without gangrene; F03.90 Unspecified dementia, unspecified severity, without behavioral disturbance, psychotic disturbance, mood disturbance, and anxiety; I25.118 Atherosclerotic heart disease of native coronary artery with other forms of angina pectoris; Z93.3 Colostomy status; Z87.891 Personal history of nicotine dependence; Z79.82 Long term (current) use of aspirin; Z95.1 Presence of aortocoronary bypass graft; Z86.73 Personal history of transient ischemic attack (TIA), and cerebral infarction without residual deficits; Z79.899 Other long term (current) drug therapy
CPT/HCPCS: 36415; 70551; 71045; 80048; 80053; 82962; 83036; 83735; 83880; 84484; 85025; 93005; 99285; J1815; J7030

== ENCOUNTER 2023-01-01 15:19 | Inpatient (IN) | payer MEDICARE, MEDICAID ==
[~2023-01-01] VITALS: Ht 175.3 cm; Wt 84.4 kg
[~2023-01-01 15:19] MED LIST changes: -METO-539 PO; +METO25TA6 PO
[2023-01-01 21:50] LABS: BASOPHILS % 0.3 % (0.0-2.0); EOSINOPHILS % 0.3 % (0.0-5.0); LYMPHOCYTES % 10.8 % (20.0-50.0); MEAN CORPUSCULAR HEMOGLOBIN 33.2 pg (28.0-32.0); MEAN CORPUSCULAR VOLUME 99.7 fL (80.0-94.0); MEAN PLATELET VOLUME 6.8 fl (7.4-10.4); MONOCYTES % 4.1 % (2.0-8.0); NEUTROPHILS % 84.5 % (40.0-76.0); PLATELET 167 x1000/uL (130-400); RED BLOOD CELL COUNT 4.82 mill/uL (4.7-6.1); RED CELL DISTRIBUTION WIDTH 14.1 % (11.6-14.6)
[2023-01-01 22:02] LABS: CHLORIDE 106 mEq/L (98-107)
[2023-01-01] MEDS ORDERED: CLONIDINE 0.1MG TABLET PO PRN (23:30)
[2023-01-01] MEDS ORDERED: ACETAMINOPHEN 325MG TABLET PO PRN ×2 (23:30)
[2023-01-01] MEDS ORDERED: DOCUSATE SODIUM 100MG CAPSULE PO PRN (23:30)
[2023-01-01] MEDS ORDERED: ONDANSETRON HCL 4MG/2ML INJ IV PRN (23:30)
[2023-01-01] MEDS ORDERED: ENOXAPARIN 40MG/0.4ML SYR SUBCUT SCH (23:30)
[2023-01-01] MEDS ORDERED: GUAIFENESIN 200MG/10ML SUGAR FREE UDC PO PRN (23:30)
[2023-01-01] MEDS ORDERED: IPRATROPIUM/ALBUTEROL 0.5-3(2.5)MG/3ML NEB HHN PRN (23:30)
[2023-01-01] MEDS ORDERED: MAGNESIUM/ALUMINUM HYDROXIDE/SIMETHICONE 30ML UDC PO PRN (23:30)
[2023-01-01] MEDS ORDERED: DIPHENHYDRAMINE 50MG/ML VIAL IV PRN (23:30)
[2023-01-01] MEDS ORDERED: DEXTROSE 50% WATER 50ML SYRINGE IV PRN (23:30)
[2023-01-01] MEDS ORDERED: PIPERACILLIN/TAZ 3.375G PREMIX 50 ML IV NR (23:45)
[2023-01-01] MEDS ORDERED: VANCOMYCIN 1.25GM PMX (XELLIA) 250 ML IV NR (23:45)
[2023-01-01] MEDS ORDERED: PIPERACILLIN/TAZOBACTAM 3.375 G in DEXTROSE 5% WATER 50 ML IV NR (23:45)
[2023-01-02] VITALS (9 sets, daily range): BP systolic 126–159; BP diastolic 60–92
[2023-01-02] MEDS: SODIUM CHLORIDE 0.45% 1,000 ML IV SCH ×2 (00:23→06:28)
[2023-01-02 01:31] LABS: BG BASE EXCESS -3.8 mmol/L (-2.0-2.0); BG CARBOXYHEMOGLOBIN 0.7 % (0.5-1.5); BG DEOXYHEMOGLOBIN 3.9 % (0.0-5.0); BG FRACTION INSPIRED OXYGEN 21; BG HCO3 ACT 19.8 mmol/L (22.0-26.0); BG METHEMOGLOBIN 0.2 % (0.0-1.5); BG OXYGEN SATURATION 96.1 % (92.0-98.5); BG OXYHEMOGLOBIN 95.2 % (94.0-97.0); BG PCO2 32.3 mmHg (35.0-45.0); BG PH 7.406 (7.350-7.450); BG PO2 89.1 mmHg (75.0-100.0); BG SAMPLE SITE RIGHT RADIAL; BG TOTAL HEMOGLOBIN 14.7 g/dL (12.0-18.0); BG VENT MODE ROOM AIR
[2023-01-02 02:52] LABS: CLARITY URINE CLEAR (CLEAR); COLOR URINE YELLOW (YELLOW); KETONES URINE TRACE (NEGATIVE); LEUKOCYTE ESTERASE URINE NEGATIVE (NEGATIVE); NITRITE URINE NEGATIVE (NEGATIVE); OCCULT BLOOD URINE NEGATIVE (NEGATIVE); PH URINE 5.5 (4.5-8.0); PROTEIN URINE NEGATIVE (NEGATIVE); SPECIFIC GRAVITY URINE 1.037 (1.005-1.030); UROBILINOGEN URINE 0.2 E.U./dL (0.2-1.0)
[2023-01-02 03:20] LABS: *AMPHETAMINES SCREEN URINE NEGATIVE (NEGATIVE); *BARBITURATES SCREEN URINE NEGATIVE (NEGATIVE); *BENZODIAZEPINES SCREEN URINE NEGATIVE (NEGATIVE); *COCAINE SCREEN URINE NEGATIVE (NEGATIVE); CANNABINOID URINE SCREEN NEGATIVE (NEGATIVE); METHADONE URINE SCREEN NEGATIVE (NEGATIVE); OPIATES URINE SCREEN NEGATIVE (NEGATIVE); PHENCYCLIDINE URINE SCREEN NEGATIVE (NEGATIVE)
[2023-01-02] MEDS ORDERED: DONE10TA11 MT (04:24)
[2023-01-02] MEDS ORDERED: EZET10TA13 PO (04:24)
[2023-01-02] MEDS: BLOOD SUGAR DIAGNOSTIC STRIP TEST SCH ×4 (05:11→21:39)
[2023-01-02] MEDS: INSULIN LISPRO 100 UNITS/ML SUBCUT SCH ×4 (05:22→21:00)
[2023-01-02 06:35] LABS: BASOPHILS % 0.3 % (0.0-2.0); EOSINOPHILS % 0.8 % (0.0-5.0); HEMATOCRIT. 42.2 % (42.0-52.0); HEMOGLOBIN. 14.6 g/dL (14.0-18.0); LYMPHOCYTES % 15.4 % (20.0-50.0); MEAN CORPUSCULAR HEMOGLOBIN 34.2 pg (28.0-32.0); MEAN CORPUSCULAR VOLUME 98.4 fL (80.0-94.0); MEAN PLATELET VOLUME 6.8 fl (7.4-10.4); MONOCYTES % 7.1 % (2.0-8.0); NEUTROPHILS % 76.4 % (40.0-76.0); PLATELET 153 x1000/uL (130-400); RED BLOOD CELL COUNT 4.28 mill/uL (4.7-6.1); RED CELL DISTRIBUTION WIDTH 13.8 % (11.6-14.6)
[2023-01-02 08:31] LABS: CREATINE KINASE MB FRACTION 1.3 ng/mL (0.5-3.6)
[2023-01-02] MEDS ORDERED: AMLODIPINE 10MG TABLET PO SCH (09:00)
[2023-01-02 09:03] LABS: CHLORIDE 108 mEq/L (98-107)
[2023-01-02 09:29] LABS: GAMMA GLUTAMYL TRANSPEPTIDASE 19 IU/L (11-50); HDL CHOLESTEROL 50 mg/dL (40-59); LDL CHOLESTEROL 78 mg/dL (5-100); T4 FREE 1.08 ng/dL (0.76-1.46)
[2023-01-02] MEDS: ASPIRIN 81MG EC TABLET PO SCH (09:37)
[2023-01-02] MEDS: LOSARTAN POTASSIUM 50 MG TABLET PO SCH (09:37)
[2023-01-02] MEDS: ENOXAPARIN 30MG/0.3ML SYR SUBCUT SCH ×2 (09:37→21:39)
[2023-01-02] MEDS: CLOPIDOGREL 75MG TABLET PO SCH (09:37)
[2023-01-02] MEDS: PIPERACILLIN/TAZOBACTAM 3.375 G in DEXTROSE 5% WATER 50 ML IV SCH ×3 (09:37→23:24)
[2023-01-02] MEDS: METOPROLOL TARTRATE 25MG TABLET PO SCH ×2 (09:38→17:00)
[2023-01-02] MEDS: VANCOMYCIN 1G PREMIX 200 ML IV SCH (14:42)
[2023-01-02] MEDS: SODIUM CHLORIDE 0.9% 1,000 ML IV SCH (14:42)
[2023-01-02 17:13] LABS: CREATINE KINASE MB FRACTION 1.9 ng/mL (0.5-3.6)
[2023-01-02] MEDS ORDERED: IPRATROPIUM BROMIDE (0.02%) 0.5MG/2.5ML NEB HHN PRN (18:00)
[2023-01-02] MEDS ORDERED: ALBUTEROL (0.083%) 2.5MG/3ML NEB HHN PRN (18:00)
[2023-01-02] MEDS ORDERED: ATORVASTATIN CALCIUM 40MG TABLET PO SCH (21:00)
[2023-01-02] MEDS: ATORVASTATIN CALCIUM 40MG TABLET PO SCH (21:38)
[2023-01-02] MEDS: FAMOTIDINE 20MG TABLET PO SCH (21:38)
[2023-01-03] VITALS: BP 130/75
[2023-01-03] MEDS: SODIUM CHLORIDE 0.9% 1,000 ML IV SCH ×2 (02:27→16:40)
[2023-01-03 04:00] VITALS: BP 115/54
[2023-01-03] MEDS: PIPERACILLIN/TAZOBACTAM 3.375 G in DEXTROSE 5% WATER 50 ML IV SCH ×3 (05:34→21:03)
[2023-01-03] MEDS: BLOOD SUGAR DIAGNOSTIC STRIP TEST SCH ×4 (06:45→21:02)
[2023-01-03] MEDS: INSULIN LISPRO 100 UNITS/ML SUBCUT SCH ×4 (06:45→21:02)
[2023-01-03 07:22] LABS: BASOPHILS % 0.5 % (0.0-2.0); EOSINOPHILS % 2.6 % (0.0-5.0); HEMATOCRIT. 39.4 % (42.0-52.0); HEMOGLOBIN. 13.4 g/dL (14.0-18.0); LYMPHOCYTES % 19.4 % (20.0-50.0); MEAN CORPUSCULAR HEMOGLOBIN 33.7 pg (28.0-32.0); MEAN CORPUSCULAR VOLUME 98.9 fL (80.0-94.0); MEAN PLATELET VOLUME 6.7 fl (7.4-10.4); MONOCYTES % 5.2 % (2.0-8.0); NEUTROPHILS % 72.3 % (40.0-76.0); PLATELET 134 x1000/uL (130-400); RED BLOOD CELL COUNT 3.99 mill/uL (4.7-6.1); RED CELL DISTRIBUTION WIDTH 13.9 % (11.6-14.6)
[2023-01-03 07:36] LABS: CHLORIDE 113 mEq/L (98-107)
[2023-01-03 08:05] VITALS: BP 153/69
[2023-01-03] MEDS: ENOXAPARIN 30MG/0.3ML SYR SUBCUT SCH ×2 (08:43→21:00)
[2023-01-03] MEDS: CLOPIDOGREL 75MG TABLET PO SCH (08:44)
[2023-01-03] MEDS: LOSARTAN POTASSIUM 50 MG TABLET PO SCH (08:44)
[2023-01-03] MEDS: VANCOMYCIN 1G PREMIX 200 ML IV SCH (08:44)
[2023-01-03] MEDS: ASPIRIN 81MG EC TABLET PO SCH (08:44)
[2023-01-03] MEDS: MECLIZINE 12.5MG TABLET PO SCH (08:44)
[2023-01-03] MEDS: METOPROLOL TARTRATE 25MG TABLET PO SCH ×2 (08:46→18:14)
[2023-01-03] MEDS ORDERED: AMLODIPINE 5MG TABLET PO SCH (09:00)
[2023-01-03] MEDS ORDERED: DONEPEZIL HCL 10MG TABLET PO SCH (10:30)
[2023-01-03 12:00] VITALS: BP_SYST 150; BP_SYST 151; BP_SYST 158; BP_DIAS 76; BP_DIAS 77; BP_DIAS 87
[2023-01-03] MEDS: QUETIAPINE FUMARATE 25MG TABLET PO SCH (14:01)
[2023-01-03 16:00] VITALS: BP 154/80
[2023-01-03 17:27] LABS: VITAMIN B12 SERUM 210 pg/mL (211-911)
[2023-01-03] MEDS ORDERED: IOHEXOL-350 100 ML BOTTLE ONE (18:04)
[2023-01-03 20:00] VITALS: BP 107/55
[2023-01-03] MEDS: ATORVASTATIN CALCIUM 40MG TABLET PO SCH (21:01)
[2023-01-03] MEDS: FAMOTIDINE 20MG TABLET PO SCH (21:01)
[2023-01-03] MEDS: MEMANTINE HCL 5MG TABLET PO SCH (21:01)
[2023-01-04] VITALS (38 sets, daily range): BP systolic 99–178; BP diastolic 49–93
[2023-01-04] MEDS: VANCOMYCIN 1G PREMIX 200 ML IV SCH (00:57)
[2023-01-04] MEDS: PIPERACILLIN/TAZOBACTAM 3.375 G in DEXTROSE 5% WATER 50 ML IV SCH ×3 (05:31→22:58)
[2023-01-04] MEDS: INSULIN LISPRO 100 UNITS/ML SUBCUT SCH ×5 (06:24→21:00)
[2023-01-04] MEDS: BLOOD SUGAR DIAGNOSTIC STRIP TEST SCH ×5 (06:24→20:45)
[2023-01-04 06:53] LABS: BASOPHILS % 0.8 % (0.0-2.0); EOSINOPHILS % 4.1 % (0.0-5.0); HEMATOCRIT. 39.9 % (42.0-52.0); HEMOGLOBIN. 13.5 g/dL (14.0-18.0); LYMPHOCYTES % 21.7 % (20.0-50.0); MEAN CORPUSCULAR HEMOGLOBIN 33.6 pg (28.0-32.0); MEAN CORPUSCULAR VOLUME 99.6 fL (80.0-94.0); MEAN PLATELET VOLUME 6.8 fl (7.4-10.4); MONOCYTES % 7.6 % (2.0-8.0); NEUTROPHILS % 65.8 % (40.0-76.0); PLATELET 139 x1000/uL (130-400); RED BLOOD CELL COUNT 4.01 mill/uL (4.7-6.1); RED CELL DISTRIBUTION WIDTH 13.9 % (11.6-14.6)
[2023-01-04] MEDS ORDERED: DEXT 5%/0.9% NACL 1,000 ML IV SCH (08:15)
[2023-01-04] MEDS ORDERED: BACITRACIN 15GM TUBE TOP ONE (08:51)
[2023-01-04] MEDS ORDERED: THROMBIN (BOVINE) 5000 UNITS/VIAL TOP ONE (08:51)
[2023-01-04] MEDS ORDERED: LIDOCAINE HCL 1% 20ML VIAL (Pyxis) INJ ONE ×2 (08:51→09:15)
[2023-01-04] MEDS ORDERED: POLYMYXIN B SULFATE 500000 UNITS/VIAL ONE (08:51)
[2023-01-04] MEDS ORDERED: BUPIVACAINE HCL/PF 0.5% (5MG/ML) 10ML ONE (08:52)
[2023-01-04] MEDS ORDERED: HEPARIN SODIUM 1,000 UNIT/1ML VIAL IV ONE (08:54)
[2023-01-04] MEDS ORDERED: ETOMIDATE 2MG/ML 10ML VIAL IV ONE (08:54)
[2023-01-04] MEDS ORDERED: SUCCINYLCHOLINE CHLORIDE 200MG/10ML IV ONE (08:57)
[2023-01-04] MEDS ORDERED: MIDAZOLAM HCL 2 MG/2 ML VIAL ONE (08:57)
[2023-01-04] MEDS: ENOXAPARIN 30MG/0.3ML SYR SUBCUT SCH ×2 (09:00→21:00)
[2023-01-04] MEDS: ASPIRIN 81MG EC TABLET PO SCH (09:00)
[2023-01-04] MEDS: LOSARTAN POTASSIUM 50 MG TABLET PO SCH (09:00)
[2023-01-04] MEDS: MEMANTINE HCL 5MG TABLET PO SCH ×2 (09:00→20:58)
[2023-01-04] MEDS: MECLIZINE 12.5MG TABLET PO SCH (09:00)
[2023-01-04] MEDS: METOPROLOL TARTRATE 25MG TABLET PO SCH ×2 (09:00→16:10)
[2023-01-04] MEDS: CLOPIDOGREL 75MG TABLET PO SCH (09:00)
[2023-01-04] MEDS: QUETIAPINE FUMARATE 25MG TABLET PO SCH (09:00)
[2023-01-04] MEDS ORDERED: NITROGLYCERIN 50MG PREMIX 250 ML IV ONE (09:10)
[2023-01-04] MEDS ORDERED: ONDANSETRON HCL 4MG/2ML INJ ONE (09:13)
[2023-01-04] MEDS ORDERED: DEXAMETHASONE 4MG/ML 1ML VIAL ONE (09:14)
[2023-01-04] MEDS ORDERED: CEFAZOLIN SODIUM 1000MG/VIAL ONE (09:14)
[2023-01-04] MEDS ORDERED: MORPHINE SULFATE 4 MG/ML CPJ (NOT FOR IM USE) IV PRN (09:30)
[2023-01-04] MEDS ORDERED: NICARDIPINE 40MG/200ML PREMIX 200 ML IV PRN (09:30)
[2023-01-04] MEDS ORDERED: NALOXONE HCL 0.4MG/ML VIAL IV PRN (09:30)
[2023-01-04] MEDS ORDERED: FENTANYL CITRATE/PF 50MCG/ML 2ML VIAL ONE ×2 (09:35→10:16)
[2023-01-04] MEDS ORDERED: HEPARIN 1000 UNITS/ML 10ML ONE (10:03)
[2023-01-04] MEDS ORDERED: EPHEDRINE SULFATE 50MG/ML VIAL ONE (10:03)
[2023-01-04] MEDS ORDERED: PROTAMINE SULFATE 10MG/ML VIAL 5ML IV ONE (10:29)
[2023-01-04] MEDS ORDERED: FENTANYL CITRATE/PF 50MCG/ML 2ML VIAL IV PRN (10:45)
[2023-01-04] MEDS ORDERED: HYDROMORPHONE HCL/PF 2MG/ML CPJ IV PRN (10:45)
[2023-01-04] MEDS ORDERED: NICARDIPINE 50 MG in SODIUM CHLORIDE 0.9% 250 ML IV PRN (12:15)
[2023-01-04] MEDS: FAMOTIDINE 20MG TABLET PO SCH (20:58)
[2023-01-04] MEDS: AMLODIPINE 5MG TABLET PO SCH (20:58)
[2023-01-04] MEDS: ATORVASTATIN CALCIUM 40MG TABLET PO SCH (20:59)
[2023-01-05] VITALS (50 sets, daily range): BP systolic 99–166; BP diastolic 50–101
[2023-01-05] MEDS ORDERED: LORAZEPAM 2MG/ML CPJ IV NR (03:15)
[2023-01-05] MEDS ORDERED: HALOPERIDOL LACTATE 5MG/ML VIAL IM PRN (04:00)
[2023-01-05 05:38] LABS: BASOPHILS % 0.3 % (0.0-2.0); EOSINOPHILS % 0.1 % (0.0-5.0); HEMATOCRIT. 39.1 % (42.0-52.0); HEMOGLOBIN. 13.1 g/dL (14.0-18.0); LYMPHOCYTES % 7.3 % (20.0-50.0); MEAN CORPUSCULAR VOLUME 98.7 fL (80.0-94.0); MEAN PLATELET VOLUME 6.8 fl (7.4-10.4); MONOCYTES % 7.7 % (2.0-8.0); NEUTROPHILS % 84.6 % (40.0-76.0); PLATELET 158 x1000/uL (130-400); RED BLOOD CELL COUNT 3.97 mill/uL (4.7-6.1); RED CELL DISTRIBUTION WIDTH 14.1 % (11.6-14.6)
[2023-01-05] MEDS: PIPERACILLIN/TAZOBACTAM 3.375 G in DEXTROSE 5% WATER 50 ML IV SCH ×3 (06:28→21:25)
[2023-01-05] MEDS: INSULIN LISPRO 100 UNITS/ML SUBCUT SCH ×4 (07:11→21:00)
[2023-01-05] MEDS: BLOOD SUGAR DIAGNOSTIC STRIP TEST SCH ×4 (07:12→21:00)
[2023-01-05] MEDS: METOPROLOL TARTRATE 25MG TABLET PO SCH ×2 (08:38→17:40)
[2023-01-05] MEDS: MEMANTINE HCL 5MG TABLET PO SCH ×2 (08:38→21:22)
[2023-01-05] MEDS: AMLODIPINE 5MG TABLET PO SCH ×2 (08:38→21:23)
[2023-01-05] MEDS: ASPIRIN 81MG EC TABLET PO SCH (08:38)
[2023-01-05] MEDS: QUETIAPINE FUMARATE 25MG TABLET PO SCH (08:38)
[2023-01-05] MEDS: LOSARTAN POTASSIUM 50 MG TABLET PO SCH (08:39)
[2023-01-05] MEDS: CYANOCOBALAMIN 100MCG TABLET PO SCH (08:39)
[2023-01-05] MEDS: MECLIZINE 12.5MG TABLET PO SCH (08:39)
[2023-01-05] MEDS: CLOPIDOGREL 75MG TABLET PO SCH (08:39)
[2023-01-05] MEDS: ENOXAPARIN 30MG/0.3ML SYR SUBCUT SCH (08:40)
[2023-01-05] MEDS: SODIUM CHLORIDE 0.45% 1,000 ML IV SCH (21:22)
[2023-01-05] MEDS: FAMOTIDINE 20MG TABLET PO SCH (21:22)
[2023-01-05] MEDS: ATORVASTATIN CALCIUM 40MG TABLET PO SCH (21:22)
[2023-01-06 00:05] VITALS: BP 102/58
[2023-01-06 04:00] VITALS: BP 126/62
[2023-01-06] MEDS: INSULIN LISPRO 100 UNITS/ML SUBCUT SCH ×4 (05:26→21:00)
[2023-01-06] MEDS: BLOOD SUGAR DIAGNOSTIC STRIP TEST SCH ×4 (05:26→21:00)
[2023-01-06] MEDS: PIPERACILLIN/TAZOBACTAM 3.375 G in DEXTROSE 5% WATER 50 ML IV SCH ×3 (05:26→21:21)
[2023-01-06 08:00] VITALS: BP 135/76
[2023-01-06] MEDS: QUETIAPINE FUMARATE 25MG TABLET PO SCH (08:57)
[2023-01-06] MEDS: ASPIRIN 81MG EC TABLET PO SCH (08:57)
[2023-01-06] MEDS: MEMANTINE HCL 5MG TABLET PO SCH ×2 (08:57→21:21)
[2023-01-06] MEDS: MECLIZINE 12.5MG TABLET PO SCH (08:57)
[2023-01-06] MEDS: LOSARTAN POTASSIUM 50 MG TABLET PO SCH (08:57)
[2023-01-06] MEDS: CLOPIDOGREL 75MG TABLET PO SCH (08:57)
[2023-01-06] MEDS: METOPROLOL TARTRATE 25MG TABLET PO SCH ×2 (08:57→17:00)
[2023-01-06] MEDS: AMLODIPINE 5MG TABLET PO SCH ×2 (08:58→21:21)
[2023-01-06] MEDS: ENOXAPARIN 40MG/0.4ML SYR SUBCUT SCH (08:59)
[2023-01-06] MEDS: CYANOCOBALAMIN 100MCG TABLET PO SCH (09:00)
[2023-01-06 09:01] LABS: HEMOGLOBIN 13.5 g/dL (14.0-18.0); MEAN CORPUSCULAR HEMOGLOBIN 33.8 pg (28.0-32.0); MEAN CORPUSCULAR VOLUME 100.3 fL (80.0-94.0); PLATELET 141 x1000/uL (130-400); RED BLOOD CELL COUNT 3.99 mill/uL (4.7-6.1); RED CELL DISTRIBUTION WIDTH 13.8 % (11.6-14.6)
[2023-01-06 09:06] LABS: CHLORIDE 106 mEq/L (98-107)
[2023-01-06 09:14] LABS: PHOSPHORUS 3.1 mg/dL (2.5-4.9)
[2023-01-06 12:00] VITALS: BP 142/76
[2023-01-06] MEDS: SODIUM CHLORIDE 0.45% 1,000 ML IV SCH ×2 (12:29→23:03)
[2023-01-06] MEDS: CHOLECALCIFEROL (D3) 1000 UNIT TABLET PO SCH (12:33)
[2023-01-06 16:00] VITALS: BP_SYST 133; BP_SYST 142; BP_DIAS 67; BP_DIAS 69
[2023-01-06 20:00] VITALS: BP_SYST 130; BP_SYST 165; BP_DIAS 70; BP_DIAS 86
[2023-01-06] MEDS: ATORVASTATIN CALCIUM 40MG TABLET PO SCH (21:21)
[2023-01-06] MEDS: FAMOTIDINE 20MG TABLET PO SCH (21:21)
[2023-01-07] VITALS (8 sets, daily range): BP systolic 105–155; BP diastolic 57–84
[2023-01-07] MEDS: BLOOD SUGAR DIAGNOSTIC STRIP TEST SCH ×4 (05:48→21:00)
[2023-01-07] MEDS: INSULIN LISPRO 100 UNITS/ML SUBCUT SCH ×4 (05:49→21:00)
[2023-01-07 07:16] LABS: BASOPHILS % 0.4 % (0.0-2.0); EOSINOPHILS % 3.7 % (0.0-5.0); HEMATOCRIT. 38.6 % (42.0-52.0); HEMOGLOBIN. 13.3 g/dL (14.0-18.0); LYMPHOCYTES % 11.2 % (20.0-50.0); MEAN CORPUSCULAR VOLUME 98.6 fL (80.0-94.0); MEAN PLATELET VOLUME 6.7 fl (7.4-10.4); MONOCYTES % 9.3 % (2.0-8.0); NEUTROPHILS % 75.4 % (40.0-76.0); PLATELET 149 x1000/uL (130-400); RED BLOOD CELL COUNT 3.91 mill/uL (4.7-6.1); RED CELL DISTRIBUTION WIDTH 13.6 % (11.6-14.6)
[2023-01-07 07:38] LABS: CHLORIDE 109 mEq/L (98-107)
[2023-01-07] MEDS: MEMANTINE HCL 5MG TABLET PO SCH ×2 (09:09→21:31)
[2023-01-07] MEDS: QUETIAPINE FUMARATE 25MG TABLET PO SCH (09:09)
[2023-01-07] MEDS: MECLIZINE 12.5MG TABLET PO SCH (09:09)
[2023-01-07] MEDS: AMLODIPINE 5MG TABLET PO SCH (09:09)
[2023-01-07] MEDS: ASPIRIN 81MG EC TABLET PO SCH (09:09)
[2023-01-07] MEDS: CYANOCOBALAMIN 100MCG TABLET PO SCH (09:09)
[2023-01-07] MEDS: CHOLECALCIFEROL (D3) 1000 UNIT TABLET PO SCH (09:09)
[2023-01-07] MEDS: METOPROLOL TARTRATE 25MG TABLET PO SCH (09:10)
[2023-01-07] MEDS: CLOPIDOGREL 75MG TABLET PO SCH (09:10)
[2023-01-07] MEDS: ENOXAPARIN 40MG/0.4ML SYR SUBCUT SCH (09:11)
[2023-01-07] MEDS: LOSARTAN POTASSIUM 50 MG TABLET PO SCH (09:55)
[2023-01-07] MEDS: SODIUM CHLORIDE 0.9% 1,000 ML IV SCH ×2 (14:20→23:00)
[2023-01-07] MEDS: METOPROLOL SUCCINATE 50MG ER TABLET PO SCH (14:20)
[2023-01-07] MEDS ORDERED: CHOL-36 PO (16:57)
[2023-01-07] MEDS ORDERED: MECL-217 PO (16:57)
[2023-01-07] MEDS ORDERED: CYAN100T43 PO (16:57)
[2023-01-07] MEDS ORDERED: QUET25TA PO (16:57)
[2023-01-07] MEDS: ATORVASTATIN CALCIUM 40MG TABLET PO SCH (21:32)
[2023-01-07] MEDS: FAMOTIDINE 20MG TABLET PO SCH (21:32)
[2023-01-08 00:03] VITALS: BP 148/76
[2023-01-08 04:00] VITALS: BP 130/80
[2023-01-08] MEDS: BLOOD SUGAR DIAGNOSTIC STRIP TEST SCH ×4 (06:34→20:44)
[2023-01-08] MEDS: INSULIN LISPRO 100 UNITS/ML SUBCUT SCH ×4 (06:35→20:44)
[2023-01-08 07:27] LABS: BASOPHILS % 0.7 % (0.0-2.0); EOSINOPHILS % 3.9 % (0.0-5.0); HEMATOCRIT. 39.2 % (42.0-52.0); HEMOGLOBIN. 13.4 g/dL (14.0-18.0); LYMPHOCYTES % 13.5 % (20.0-50.0); MEAN CORPUSCULAR HEMOGLOBIN 33.9 pg (28.0-32.0); MEAN PLATELET VOLUME 6.8 fl (7.4-10.4); MONOCYTES % 9.6 % (2.0-8.0); NEUTROPHILS % 72.3 % (40.0-76.0); PLATELET 157 x1000/uL (130-400); RED BLOOD CELL COUNT 3.96 mill/uL (4.7-6.1)
[2023-01-08 08:00] VITALS: BP 122/52
[2023-01-08 08:59] LABS: CHLORIDE 110 mEq/L (98-107)
[2023-01-08] MEDS: SODIUM CHLORIDE 0.9% 1,000 ML IV SCH (09:00)
[2023-01-08] MEDS: MEMANTINE HCL 5MG TABLET PO SCH ×2 (09:45→20:40)
[2023-01-08] MEDS: QUETIAPINE FUMARATE 25MG TABLET PO SCH (09:45)
[2023-01-08] MEDS: LOSARTAN POTASSIUM 25 MG TABLET PO SCH (09:45)
[2023-01-08] MEDS: METOPROLOL SUCCINATE 50MG ER TABLET PO SCH (09:45)
[2023-01-08] MEDS: ASPIRIN 81MG EC TABLET PO SCH (09:45)
[2023-01-08] MEDS: CHOLECALCIFEROL (D3) 1000 UNIT TABLET PO SCH (09:45)
[2023-01-08] MEDS: MECLIZINE 12.5MG TABLET PO SCH (09:45)
[2023-01-08] MEDS: ENOXAPARIN 40MG/0.4ML SYR SUBCUT SCH (09:46)
[2023-01-08] MEDS: CLOPIDOGREL 75MG TABLET PO SCH (09:46)
[2023-01-08] MEDS: AMLODIPINE 5MG TABLET PO SCH (09:48)
[2023-01-08] MEDS: CYANOCOBALAMIN 100MCG TABLET PO SCH (09:48)
[2023-01-08 16:00] VITALS: BP 116/75
[2023-01-08 20:00] VITALS: BP 143/84
[2023-01-08] MEDS: FAMOTIDINE 20MG TABLET PO SCH (20:40)
[2023-01-08] MEDS: ATORVASTATIN CALCIUM 40MG TABLET PO SCH (20:40)
[2023-01-09] VITALS: BP 129/72
[2023-01-09 04:00] VITALS: BP 160/88
[2023-01-09] MEDS: BLOOD SUGAR DIAGNOSTIC STRIP TEST SCH ×4 (06:37→21:06)
[2023-01-09] MEDS: INSULIN LISPRO 100 UNITS/ML SUBCUT SCH ×4 (07:50→21:00)
[2023-01-09 08:00] VITALS: BP 112/69
[2023-01-09] MEDS: MEMANTINE HCL 5MG TABLET PO SCH ×2 (09:20→21:05)
[2023-01-09] MEDS: CLOPIDOGREL 75MG TABLET PO SCH (09:20)
[2023-01-09] MEDS: CYANOCOBALAMIN 100MCG TABLET PO SCH (09:20)
[2023-01-09] MEDS: QUETIAPINE FUMARATE 25MG TABLET PO SCH (09:21)
[2023-01-09] MEDS: LOSARTAN POTASSIUM 25 MG TABLET PO SCH (09:21)
[2023-01-09] MEDS: MECLIZINE 12.5MG TABLET PO SCH (09:21)
[2023-01-09] MEDS: AMLODIPINE 5MG TABLET PO SCH (09:21)
[2023-01-09] MEDS: ASPIRIN 81MG EC TABLET PO SCH (09:21)
[2023-01-09] MEDS: METOPROLOL SUCCINATE 50MG ER TABLET PO SCH (09:21)
[2023-01-09] MEDS: CHOLECALCIFEROL (D3) 1000 UNIT TABLET PO SCH (09:22)
[2023-01-09] MEDS: ENOXAPARIN 40MG/0.4ML SYR SUBCUT SCH (09:22)
[2023-01-09] MEDS: SODIUM CHLORIDE 0.9% 1,000 ML IV SCH ×2 (09:23)
[2023-01-09 10:45] LABS: BASOPHILS % 0.5 % (0.0-2.0); EOSINOPHILS % 4.5 % (0.0-5.0); HEMATOCRIT. 36.7 % (42.0-52.0); HEMOGLOBIN. 12.3 g/dL (14.0-18.0); LYMPHOCYTES % 10.5 % (20.0-50.0); MEAN CORPUSCULAR HEMOGLOBIN 33.6 pg (28.0-32.0); MEAN CORPUSCULAR VOLUME 99.9 fL (80.0-94.0); MEAN PLATELET VOLUME 6.4 fl (7.4-10.4); MONOCYTES % 8.3 % (2.0-8.0); NEUTROPHILS % 76.2 % (40.0-76.0); PLATELET 161 x1000/uL (130-400); RED BLOOD CELL COUNT 3.67 mill/uL (4.7-6.1)
[2023-01-09 10:48] LABS: CHLORIDE 111 mEq/L (98-107)
[2023-01-09 12:00] VITALS: BP 122/68
[2023-01-09 16:04] VITALS: BP 126/68
[2023-01-09 20:00] VITALS: BP 104/66
[2023-01-09] MEDS: FAMOTIDINE 20MG TABLET PO SCH (21:06)
[2023-01-09] MEDS: ATORVASTATIN CALCIUM 40MG TABLET PO SCH (21:06)
[2023-01-10] MEDS: SODIUM CHLORIDE 0.9% 1,000 ML IV SCH ×2 (01:18→23:25)
[2023-01-10 04:00] VITALS: BP 115/62
[2023-01-10] MEDS: BLOOD SUGAR DIAGNOSTIC STRIP TEST SCH ×4 (06:43→21:00)
[2023-01-10] MEDS: INSULIN LISPRO 100 UNITS/ML SUBCUT SCH ×4 (07:50→21:00)
[2023-01-10 08:00] VITALS: BP 149/77
[2023-01-10 09:21] LABS: BASOPHILS % 0.6 % (0.0-2.0); HEMATOCRIT. 37.2 % (42.0-52.0); HEMOGLOBIN. 12.5 g/dL (14.0-18.0); LYMPHOCYTES % 12.2 % (20.0-50.0); MEAN CORPUSCULAR VOLUME 98.3 fL (80.0-94.0); MEAN PLATELET VOLUME 6.3 fl (7.4-10.4); MONOCYTES % 7.6 % (2.0-8.0); NEUTROPHILS % 74.6 % (40.0-76.0); PLATELET 170 x1000/uL (130-400); RED BLOOD CELL COUNT 3.78 mill/uL (4.7-6.1); RED CELL DISTRIBUTION WIDTH 13.5 % (11.6-14.6)
[2023-01-10] MEDS: CYANOCOBALAMIN 100MCG TABLET PO SCH (09:29)
[2023-01-10] MEDS: MEMANTINE HCL 5MG TABLET PO SCH ×2 (09:29→22:41)
[2023-01-10] MEDS: CHOLECALCIFEROL (D3) 1000 UNIT TABLET PO SCH (09:29)
[2023-01-10] MEDS: ENOXAPARIN 40MG/0.4ML SYR SUBCUT SCH (09:29)
[2023-01-10] MEDS: ASPIRIN 81MG EC TABLET PO SCH (09:30)
[2023-01-10] MEDS: QUETIAPINE FUMARATE 25MG TABLET PO SCH (09:30)
[2023-01-10] MEDS: METOPROLOL SUCCINATE 50MG ER TABLET PO SCH (09:30)
[2023-01-10] MEDS: MECLIZINE 12.5MG TABLET PO SCH (09:30)
[2023-01-10] MEDS: LOSARTAN POTASSIUM 25 MG TABLET PO SCH (09:31)
[2023-01-10] MEDS: CLOPIDOGREL 75MG TABLET PO SCH (09:31)
[2023-01-10] MEDS: AMLODIPINE 5MG TABLET PO SCH (09:31)
[2023-01-10 09:38] LABS: CHLORIDE 109 mEq/L (98-107)
[2023-01-10 12:00] VITALS: BP 110/67
[2023-01-10 16:00] VITALS: BP 132/77
[2023-01-10 20:00] VITALS: BP 122/74
[2023-01-10] MEDS: ATORVASTATIN CALCIUM 40MG TABLET PO SCH (22:40)
[2023-01-10] MEDS: FAMOTIDINE 20MG TABLET PO SCH (22:40)
[2023-01-11] VITALS: BP 141/79
[2023-01-11 04:00] VITALS: BP 150/72
[2023-01-11] MEDS: BLOOD SUGAR DIAGNOSTIC STRIP TEST SCH (07:35)
[2023-01-11] MEDS ORDERED: ALBUTEROL (0.083%) 2.5MG/3ML NEB HHN NR (07:45)
[2023-01-11] MEDS ORDERED: IPRATROPIUM BROMIDE (0.02%) 0.5MG/2.5ML NEB HHN NR (07:45)
[2023-01-11] MEDS ORDERED: IPRATROPIUM/ALBUTEROL 0.5-3(2.5)MG/3ML NEB HHN ONE (07:45)
[2023-01-11] MEDS: INSULIN LISPRO 100 UNITS/ML SUBCUT SCH (07:46)
[2023-01-11 08:10] VITALS: BP 139/73
[2023-01-11] MEDS: SODIUM CHLORIDE 0.9% 1,000 ML IV SCH (09:21)
[2023-01-11] MEDS: LOSARTAN POTASSIUM 25 MG TABLET PO SCH (09:22)
[2023-01-11] MEDS: MEMANTINE HCL 5MG TABLET PO SCH (09:22)
[2023-01-11] MEDS: CYANOCOBALAMIN 100MCG TABLET PO SCH (09:22)
[2023-01-11] MEDS: ASPIRIN 81MG EC TABLET PO SCH (09:22)
[2023-01-11] MEDS: QUETIAPINE FUMARATE 25MG TABLET PO SCH (09:22)
[2023-01-11] MEDS: CLOPIDOGREL 75MG TABLET PO SCH (09:22)
[2023-01-11] MEDS: CHOLECALCIFEROL (D3) 1000 UNIT TABLET PO SCH (09:22)
[2023-01-11] MEDS: MECLIZINE 12.5MG TABLET PO SCH (09:24)
[2023-01-11] MEDS: METOPROLOL SUCCINATE 50MG ER TABLET PO SCH (09:24)
[2023-01-11] MEDS: AMLODIPINE 5MG TABLET PO SCH (09:25)
== END 2023-01-11 10:00 | disposition home or self-care (01) | DRG 24 ==
LOC: ER 15:19 → 8WST 22:41 → EDBEDREQ 22:55 → EDBEDREQTM 22:55 → CVICU 01-04 12:01 → 7WST 01-05 13:32 → 6EST 01-08 11:42
PROVIDERS: ADMIT Internal Medicine; ATTEND Internal Medicine
PROC: 03CJ0ZZ Extirpation of Matter from Left Common Carotid Artery, Open Approach (ICD-10-PCS; principal; 2023-01-04)
DX: I65.22 Occlusion and stenosis of left carotid artery (principal); G93.41 Metabolic encephalopathy; N17.9 Acute kidney failure, unspecified; E87.20 Acidosis, unspecified; I44.0 Atrioventricular block, first degree; E86.0 Dehydration; F03.90 Unspecified dementia, unspecified severity, without behavioral disturbance, psychotic disturbance, mood disturbance, and anxiety; I50.9 Heart failure, unspecified; I11.0 Hypertensive heart disease with heart failure; J44.9 Chronic obstructive pulmonary disease, unspecified; E11.65 Type 2 diabetes mellitus with hyperglycemia; E55.9 Vitamin D deficiency, unspecified; I95.1 Orthostatic hypotension; R32 Unspecified urinary incontinence; E53.8 Deficiency of other specified B group vitamins; Z20.822 Contact with and (suspected) exposure to COVID-19; I25.10 Atherosclerotic heart disease of native coronary artery without angina pectoris; R41.0 Disorientation, unspecified; Z79.02 Long term (current) use of antithrombotics/antiplatelets; Z91.14 Patient's other noncompliance with medication regimen; Z91.199 Patient's noncompliance with other medical treatment and regimen due to unspecified reason; Z95.1 Presence of aortocoronary bypass graft; Z78.1 Physical restraint status; Z79.899 Other long term (current) drug therapy; Z86.73 Personal history of transient ischemic attack (TIA), and cerebral infarction without residual deficits; Z87.891 Personal history of nicotine dependence
CPT/HCPCS: 36415; 36600; 70496; 70498; 71045; 80048; 80053; 80061; 80202; 80305; 81003; 82010; 82248; 82306; 82375; 82550; 82553; 82607; 82746; 82805; 82962; 82977; 83036; 83605; 83735; 83880; 84100; 84145; 84153; 84439; 84443; 84484; 85025; 85027; 87426; 88304; 88311; 93005; 93306; 93880; 93970; 97110; 97116; 97162; 97166; 97168; 97530; 97535; 99285; C1893; J0330; J0690; J1100; J1630; J1644; J1650; J1815; J2060; J2250; J2405; J2543; J2720; J3010; J3370; J3490; J7030; J7042; J7050; J7060; J8597; L3908; Q9967; G0103